=== PATIENT | male | born 1995 | race Caucasian/White ===

== ENCOUNTER 2020-08-28 18:43 | Emergency (ER) | payer MEDICAID ==
[~2020-08-28] VITALS: Ht 177.8 cm; Wt 62.2 kg
[2020-08-28 18:44] VITALS: BP 140/90
== END 2020-08-28 22:18 | disposition left against medical advice (07) ==
LOC: M ED 18:43
DX: Z53.21 Procedure and treatment not carried out due to patient leaving prior to being seen by health care provider (principal)

== ENCOUNTER → 2020-12-01 | Outpatient (CLI) | payer SELFPAY | LOC: M LABSMTC 11:40 | PROVIDERS: ATTEND Pediatrics | DX: Z20.822 Contact with and (suspected) exposure to COVID-19 (principal) | CPT/HCPCS: C9803; U0003 ==

== ENCOUNTER 2024-10-03 11:51 | Emergency (ER) | payer OTHER ==
[~2024-10-03] VITALS: Ht 177.8 cm; Wt 63.6 kg
[~2024-10-03 11:51] MED LIST: ONDA-282 PO; PROT1TAB2 PO
[2024-10-03 12:35] LABS: BASO # 0.0 10^3/uL (0.0-0.2); BASO % 0.5 % (0.0-1.0); EOS # 0.0 10^3/uL (0.0-0.5); EOS % 0.7 % (0.0-3.0); LYMPH # 1.1 10^3/uL (1.5-5.0); LYMPH % 19.4 % (24.0-44.0); MONO # 0.6 10^3/uL (0.0-0.8); MONO % 11.1 % (2.0-8.0); NEUTROPHILS # 3.8 10^3/uL (1.5-8.5); NEUTROPHILS % 67.9 % (36.0-66.0); PLATELET COUNT, AUTOMATED 106 10^3/uL (150-450)
[2024-10-03 13:03] LABS: CALCIUM LEVEL 8.6 MG/DL (8.5-10.1); CARBON DIOXIDE LEVEL 29 MMOL/L (20-31); CHLORIDE LEVEL 98 MMOL/L (98-107); CREATININE FOR GFR 0.73 MG/DL (0.70-1.30); GLOMERULAR FILTRATION RATE > 90.0 (>60); POTASSIUM SERUM 3.5 MMOL/L (3.5-5.1); SODIUM LEVEL 140 MMOL/L (136-145)
[2024-10-03 15:38] VITALS: BP 163/97; TEMP 99.6; O2SAT 98
== END 2024-10-03 16:34 | disposition left against medical advice (07) ==
LOC: M ED 11:51
DX: Z53.21 Procedure and treatment not carried out due to patient leaving prior to being seen by health care provider (principal)